=== PATIENT | male | born 1995 | race Caucasian/White ===

== ENCOUNTER 2021-11-18 22:58 | Emergency (ER) | payer SELFPAY ==
[2021-11-18] MEDS ORDERED: IBUPROFEN 400 MG TAB ONE (23:45)
[2021-11-18] MEDS ORDERED: HYDROCODONE/APAP 5/325 MG TAB ONE (23:45)
--- NOTE | 2021-11-19 00:55 | EDPHYS ---
Physician Documentation [facility] Name: Rob Blair Age: 26 yrs Sex: Male : 1995 Arrival Date: 11/18/2021 Time: 23:00 Bed 20 Private MD: ED Physician Micah Roman HPI: 11/18 23:45 This 26 yrs old Male presents to ER via Wheelchair with complaints of Ankle Injury. cp 23:45 The patient presents with an injury, swelling, tenderness. The complaints affect the cp left lateral ankle. Onset: The symptoms/episode began/occurred just prior to arrival. Context: resulted from fall while on couch, The mechanism of injury involved inversion of the affected ankle. The patient is unable to bear weight. Associated signs and symptoms: The patient has no apparent associated signs or symptoms. Historical: - Allergies: 23:09 PENICILLINS; ld1 - Home Meds: 23:09 None [Active]; ld1 - PMHx: 23:09 None; ld1 - PSHx: 23:09 None; ld1 - Immunization history:: Adult Immunizations up to date, Client reports having NOT received the Covid vaccine. - Social history:: Smoking status: Patient reports the use of cigarette tobacco products, smokes one pack cigarettes per day. Patient/guardian denies using alcohol. ROS: 23:50 Constitutional: Negative for body aches, chills, fever, poor PO intake. cp 23:50 Eyes: Negative for injury, pain, redness, and discharge. cp 23:50 Neck: Negative for pain with movement, pain at rest, stiffness. 23:50 Cardiovascular: Negative for chest pain, palpitations. 23:50 Respiratory: Negative for cough, shortness of breath, wheezing. 23:50 Abdomen/GI: Negative for abdominal pain, nausea, vomiting, and diarrhea. 23:50 Back: Negative for pain at rest, pain with movement. 23:50 MS/extremity: Positive for injury or acute deformity, pain, swelling, tenderness, of the left lateral ankle, Negative for paresthesias. 23:50 Neuro: Negative for altered mental status, headache, loss of consciousness, syncope, weakness. 23:50 All other systems are negative. Exam: 23:55 Constitutional: The patient appears in no acute distress, alert, awake, non-toxic, well cp developed, well nourished, uncomfortable. 23:55 Head/Face: Normocephalic, atraumatic. cp 23:55 Neck: ROM/movement: is normal, is supple, without pain, no range of motions limitations. 23:55 Chest/axilla: Inspection: normal. 23:55 Cardiovascular: Rate: normal, Rhythm: regular, Pulses: Pulses are 2+ in left dorsalis pedis artery. 23:55 Respiratory: the patient does not display signs of respiratory distress, Respirations: normal, no use of accessory muscles, no retractions, labored breathing, is not present. 23:55 Abdomen/GI: Exam negative for discomfort, distension, guarding, Inspection: abdomen appears normal. 23:55 Back: pain, is absent, ROM is normal. 23:55 Musculoskeletal/extremity: Joints: the left ankle displays lateral malleolus swelling, marked tenderness, pain with passive ROM, Achilles tendon intact, no pain to palpation noted proximal fibula and/or base of left fifth metatarsal. Vital Signs: 23:07 BP 138 / 75; Pulse 89; Resp 18; Temp 98.8(TE); Pulse Ox 100% on R/A; Weight 77.11 kg; ld1 Height 6 ft. 4 in. (193.04 cm); Pain 9/10; 08 01:15 BP 128 / 71; Pulse 85; Resp 18; Pulse Ox 97% on R/A; sm5 07/07 23:07 Body Mass Index 20.69 (77.11 kg, 193.04 cm) ld1 Procedures: 11/18 01:15 Splinting: Splint applied to left ankle using Orthoglass splint, posterior short leg cp and stirrup. applied by tech. Examined by me, post splint application: neurovascular intact, Patient tolerated well. MDM: 23:39 Patient medically screened. cp 11/19 00:00 Differential diagnosis: fracture, sprain, dislocation, foot fracture, foot dislocation, cp Achilles tendon rupture. 00:55 Data reviewed: vital signs, nurses notes, radiologic studies, plain films. cp 00:55 Test interpretation: by ED physician or midlevel provider: plain radiologic studies. cp Counseling: I had a detailed discussion with the patient and/or guardian regarding: the historical points, exam findings, and any diagnostic results supporting the discharge/admit diagnosis, radiology results, the need for outpatient follow up, for definitive care, a orthopedic surgeon, to return to the emergency department if symptoms worsen or persist or if there are any questions or concerns that arise at home. Response to treatment: the patient's symptoms have markedly improved after treatment, and as a result, I will discharge patient. 11/18 23:10 Order name: XRAY Ankle LEFT 3 view ld1 11/19 00:45 Order name: Splint: short leg with stirrup; Complete Time: 01:10 cp 11/19 00:45 Order name: Crutches; Complete Time: 01:10 cp Administered Medications: 11/18 23:46 CANCELLED (Other Intervention Used): HYDROcodone-acetaminophen (5 mg-500 mg) 1 tabs PO 5 once; RASS on ADMIN: Combtv4, Very Agttd3, Agttd2, Rstlss1, AlertClm0, Drwsy-1, Lt Sdtn-2, Mod Sdtn-3, Dp Sdtn-4, UnArsble-5 23:48 Drug: Ibuprofen 800 mg Route: PO; 5 11/19 01:17 Follow up: Response: No adverse reaction [facility] 11/18 23:48 Drug: HYDROcodone-acetaminophen 5 mg-325 mg 1 tabs Route: PO; [facility] 11/19 01:17 Follow up: Response: No adverse reaction; Pain is decreased; RASS: Alert and Calm (0) [facility] Disposition Summary: 11/19/21 00:55 Discharge Ordered Location: Home cp Problem: new cp Symptoms: have improved cp Condition: Stable cp Diagnosis - Nondisplaced fracture of lateral malleolus of left fibula cp Followup: cp - With: Steven Vaca MD - When: 5 - 6 days - Reason: left distal fibula fracture Discharge Instructions: - Discharge Summary Sheet cp - Ankle Fracture cp Forms: - Medication Reconciliation Form cp - Thank You Letter cp - Antibiotic Education cp - Prescription Opioid Use cp Prescriptions: - Ibuprofen 800 mg Oral Tablet - take 1 tablet by ORAL route every 8 hours As needed take with food; 30 tablet; cp Refills: 0, Product Selection Permitted - Tylenol-Codeine #3 300 mg-30 mg Oral - take 2 tablet by ORAL route every 6-8 hours; 20 tablet; Refills: 0, Product cp Selection Permitted Signatures: Dispatcher [employer] EDMS Micah Dimas PA PA cp Catherine Garcia, RN RN ld1 Kaylene Ashley RN RN sm5 Corrections: (The following items were deleted from the chart) 11/18 23:09 23:09 Allergies: No Known Allergies; ld1 ld1 23:46 23:35 HYDROcodone-acetaminophen (5 mg-500 mg) 1 tabs PO once; RASS on ADMIN: Combtv4, sm5 Very Agttd3, Agttd2, Rstlss1, AlertClm0, Drwsy-1, Lt Sdtn-2, Mod Sdtn-3, Dp Sdtn-4, UnArsble-5 ordered. cp
--- NOTE | 2021-11-19 00:55 | ER ---
Nurse's Notes [facility] Name: Rob Blair Age: 26 yrs Sex: Male : 1995 Arrival Date: 11/18/2021 Time: 23:00 Bed 20 Private MD: Diagnosis: Nondisplaced fracture of lateral malleolus of left fibula Presentation: 11/18 23:07 Chief complaint: Patient states: Fell off the cough - twisted left ankle. Swollen and I ld1 think it is broken. Coronavirus screen: At this time, the client does not indicate any symptoms associated with coronavirus-19. Ebola Screen: No symptoms or risks identified at this time. Initial Sepsis Screen: Does the patient meet any 2 criteria? No. Patient's initial sepsis screen is negative. Does the patient have a suspected source of infection? No. Patient's initial sepsis screen is negative. Risk Assessment: Do you want to hurt yourself or someone else? Patient reports no desire to harm self or others. Onset of symptoms was November 18, 2021 at 23:09. 23:07 Method Of Arrival: Wheelchair ld1 23:07 Acuity: ANDRY 3 ld1 Triage Assessment: 23:09 General: Appears in no apparent distress. uncomfortable, Behavior is calm, cooperative, ld1 appropriate for age. Pain: Complains of pain in left foot, left lateral ankle, left Achilles, left medial ankle and anterior aspect of left ankle Pain does not radiate. Pain currently is 9 out of 10 on a pain scale. Quality of pain is described as throbbing. EENT: No signs and/or symptoms were reported regarding the EENT system. Neuro: Level of Consciousness is awake, alert, obeys commands, Oriented to person, place, time, situation. Cardiovascular: Capillary refill < 3 seconds Patient's skin is warm and dry. Respiratory: Airway is patent Respiratory effort is even, unlabored. GI: Abdomen is flat, non-distended. : No signs and/or symptoms were reported regarding the genitourinary system. Derm: No signs and/or symptoms reported regarding the dermatologic system. Musculoskeletal: Reports pain in left foot. Historical: - Allergies: 23: PENICILLINS; ld1 - Home Meds: 23:09 None [Active]; ld1 - PMHx: 23:09 None; ld1 - PSHx: 23:09 None; ld1 - Immunization history:: Adult Immunizations up to date, Client reports having NOT received the Covid vaccine. - Social history:: Smoking status: Patient reports the use of cigarette tobacco products, smokes one pack cigarettes per day. Patient/guardian denies using alcohol. Screenin/08 01:16 Abuse screen: Denies threats or abuse. Denies injuries from another. Nutritional sm5 screening: No deficits noted. Tuberculosis screening: No symptoms or risk factors identified. Fall Risk Fall in past 12 months (25 points). No secondary diagnosis (0 pts). No IV (0 pts). Ambulatory Aid- None/Bed Rest/Nurse Assist (0 pts). Gait- Normal/Bed Rest/Wheelchair (0 pts) Mental Status- Oriented to own ability (0 pts). Total Loza Fall Scale indicates Low Risk Score (25-44 pts). Fall prevention measures have been instituted. Side Rails Up X 2 Placed close to Nursing Station As available Patient and Family Educated on Fall Prevention Program and strategies. Assessment: 11/18 23:30 General: Appears in no apparent distress. Behavior is cooperative. Pain: Complains of sm5 pain in left medial ankle and left lateral ankle. Neuro: Level of Consciousness is awake, alert, obeys commands, Oriented to person, place, time, situation. Cardiovascular: Capillary refill < 3 seconds Patient's skin is warm and dry. Respiratory: Airway is patent Trachea midline Respiratory effort is even, unlabored. Musculoskeletal: Swelling present in anterior aspect of left ankle. Vital Signs: 23:07 BP 138 / 75; Pulse 89; Resp 18; Temp 98.8(TE); Pulse Ox 100% on R/A; Weight 77.11 kg; ld1 Height 6 ft. 4 in. (193.04 cm); Pain 9/10; 11/19 01:15 BP 128 / 71; Pulse 85; Resp 18; Pulse Ox 97% on R/A; sm5 11/18 23:07 Body Mass Index 20.69 (77.11 kg, 193.04 cm) ld1 ED Course: 11/18 23:00 Patient arrived in ED. mr 23:09 Triage completed. ld1 23:09 Arm band placed on right wrist. ld1 23:27 Kaylene Ashley, SKYLAR is Primary Nurse. sm5 23:27 Page, Micah, PA is PHCP. cp 23:27 Micah Roman MD is Attending Physician. cp 23:51 XRAY Ankle LEFT 3 view In Process Unspecified. EDVT 11/19 00:53 Steven Vaca MD is Referral Physician. cp 01:10 Orthoglass splint: Posterior short lleg splint applied on left leg. stirrup splint ds4 applied on left leg. 01:10 Crutch training done. 5 01:16 Patient has correct armband on for positive identification. Bed in low position. Call 5 light in reach. Side rails up X2. 01:16 No provider procedures requiring assistance completed. Patient did not have IV access 5 during this emergency room visit. Administered Medications: 11/18 23:46 CANCELLED (Other Intervention Used): HYDROcodone-acetaminophen (5 mg-500 mg) 1 tabs PO 5 once; RASS on ADMIN: Combtv4, Very Agttd3, Agttd2, Rstlss1, AlertClm0, Drwsy-1, Lt Sdtn-2, Mod Sdtn-3, Dp Sdtn-4, UnArsble-5 23:48 Drug: Ibuprofen 800 mg Route: PO; 5 11/19 01:17 Follow up: Response: No adverse reaction 5 11/18 23:48 Drug: HYDROcodone-acetaminophen 5 mg-325 mg 1 tabs Route: PO; 5 11/19 01:17 Follow up: Response: No adverse reaction; Pain is decreased; RASS: Alert and Calm (0) 5 Medication: 01:16 VIS not applicable for this client. 5 Outcome: 00:55 Discharge ordered by . cp 01:16 Discharged to home with crutches. sm5 01:16 Condition: stable 01:16 Discharge instructions given to patient, Instructed on discharge instructions, follow up and referral plans. no drinking with medication, medication usage, crutch walking, Demonstrated understanding of instructions, follow-up care, medications, crutch walking, splint care, Prescriptions given X 2. 01:18 Patient left the ED. 5 Signatures: Dispatcher [facility] Montalvo Donovan ds4 Micah Dimas PA PA cp Catherine Garcia RN RN ld1 Gabi, Kaylene, RN RN sm5 Corrections: (The following items were deleted from the chart) 11/18 23:09 23:09 Allergies: No Known Allergies; ld1 ld1
[2021-11-19 02:30] VITALS: TEMP 98.8
[2021-11-19 02:32] VITALS: BP 128/71; O2SAT 97
--- NOTE | 2021-11-19 15:50 | RAD REPORT ---
EXAM DESCRIPTION: Ankle Left 3 View CLINICAL HISTORY: 26 years Male, PAIN left ankle TECHNIQUE: 3 views COMPARISON: None. FINDINGS: BONES: Transverse fracture lateral malleolus with minimal displacement. Remaining osseous structures are intact. Ankle mortise is well-preserved. SOFT TISSUES: Moderate lateral malleolar soft tissue swelling. No radiopaque foreign body. IMPRESSION: 1. Lateral malleolar fracture with minimal displacement. 2. Moderate lateral malleolar soft tissue swelling. Electronically signed by: Steven Cedillo MD 11/19/2021 12:20 AM CDT Due to temporary technical issues with the PACS/Fluency reporting system, reports are being signed by the in house radiologists without review as a courtesy to insure prompt reporting. The interpreting radiologist is fully responsible for the content of the report.
== END 2021-11-19 01:18 | disposition home or self-care (01) ==
LOC: ER 22:58
PROC: 2W3RX1Z Immobilization of Left Lower Leg using Splint (ICD-10-PCS; principal; 2021-11-19)
DX: S82.65XA Nondisplaced fracture of lateral malleolus of left fibula, initial encounter for closed fracture (principal); Z88.0 Allergy status to penicillin; F17.210 Nicotine dependence, cigarettes, uncomplicated